=== PATIENT | female | born 1980 | race Caucasian/White ===

== ENCOUNTER 2016-10-25 11:28 | Emergency (ER) | payer MEDICAID ==
[2016-10-25] MEDS ORDERED: Ibuprofen TAB* 400 MG PO ONE (13:29)
--- NOTE | 2016-10-25 13:29 | UC ---
Lower Extremity/Ankle HPI - HPI Summary HPI Summary: complaint of lower bilateral leg pain that started approx 4 days ago- left much worse than the right leg pain has worsened pain started in both foot and shoots into her saenz walking on it makes the pain worse denies trauma but has been walking approx 6-10 miles per day wears sneakers hasn't taken any medication for pain - History of Current Complaint Chief Complaint: UCLowerExtremity Stated Complaint: LEG INJURY Time Seen by Provider: 10/25/16 12:21 Hx Obtained From: Patient Hx Last Menstrual Period: TUBAL Aggravating Factor(s): Ambulation Alleviating Factor(s): Rest Able to Bear Weight: Yes - Allergies/Home Medications Allergies/Adverse Reactions: Allergies Allergy/AdvReac Type Severity Reaction Status Date / Time No Known Allergies Allergy Verified 02/15/16 18:41 PMH/Surg Hx/FS Hx/Imm Hx Previously Healthy: Yes Endocrine History Of: Denies: Diabetes, Thyroid Disease Cardiovascular History Of: Denies: Cardiac Disorders, Hypertension, Pacemaker/ICD Respiratory History Of: Denies: COPD, Asthma GI/ History Of: Reports: Gall Bladder Disease - Choly Denies: Ulcer, Renal Disease Psychological History Of: Reports: Anxiety, Depression, Bipolar Disorder Denies: Schizophrenia - Surgical History Surgical History: Yes Surgery Procedure, Year, and Place: C-Sections, 2002 2006 2009, [facility]. Cholecystectomy, 2011, [facility], thigh debriefing infection. tubal ligation - Family History Known Family History: Positive: None Family History: no known family history of cardio pulmonary disease or clotting disorders - Social History Occupation: Unemployed Lives: With Family Alcohol Use: None Substance Use Type: None Substance Use Comment - Amount & Last Used: amphetamines - none for 6 months or more 08/31 Smoking Status (MU): Current Every Day Smoker Type: Cigarettes Amount Used/How Often: 5 PER DAY Have You Smoked in the Last Year: Yes Household Exposure Type: Cigarettes Cessation Counseling: Patient Advised to Stop - Immunization History Most Recent Influenza Vaccination: Never Most Recent Tetanus Shot: 4yrs ago Most Recent Pneumonia Vaccination: never Review of Systems Constitutional: Negative Skin: Negative Eyes: Negative ENT: Negative Respiratory: Negative Cardiovascular: Negative Gastrointestinal: Negative Genitourinary: Negative Motor: Negative Neurovascular: Negative Musculoskeletal: Other: - lower leg pain Neurological: Negative Psychological: Negative All Other Systems Reviewed And Are Negative: Yes Physical Exam Triage Information Reviewed: Yes Appearance: No Pain Distress, Well-Nourished, Obese Vital Signs: Initial Vital Signs Temp 97.4 F 10/25/16 11:51 Pulse 90 10/25/16 11:51 Resp 16 10/25/16 11:51 BP 128/70 10/25/16 11:51 Pulse Ox 98 10/25/16 11:51 Vital Signs Reviewed: Yes Eyes: Positive: Conjunctiva Clear ENT: Positive: Pharynx normal, TMs normal. Negative: Nasal congestion Neck: Positive: No Lymphadenopathy Respiratory: Positive: Lungs clear, Normal breath sounds, No respiratory distress Cardiovascular: Positive: RRR, No Murmur, Pulses Normal Abdomen Description: Positive: Nontender, Soft Bowel Sounds: Positive: Present Musculoskeletal: Positive: Other: - medial and lateral tibia tenderness bilaterally, non tender in calves and knee- no edema No bony deformities, inflammation, or tenderness in bony prominences or soft tissue of foot or ankle. Full ROM dorsi/plantar flexion, inversion & eversion. [place] test negative. Neurological Exam: Normal Psychological Exam: Normal Skin Exam: Normal Lower Extremity Course/Dx - Differential Dx/Diagnosis Differential Diagnosis/HQI/PQRI: DVT, Fracture (Closed), Sprain, Strain Provider Diagnoses: saenz splints bilaterally Discharge - Discharge Plan Condition: Stable Disposition: HOME Patient Education Materials: Saenz Splints (ED), RICE Therapy (ED) Forms: *Work Release Referrals: Brennon Barrientos MD [Primary Care Provider] - Additional Instructions: Your blood pressure is elevated. Please contact your primary care provider within 1 day -4 weeks for further evaluation. Increase fluids and rest Take ibuprofen for fever or pain Please review your discharge instructions. If your symptoms do not improve please call your primary care provider or return to urgent care
[2016-10-25 13:36] VITALS: BP 137/90
== END 2016-10-25 13:43 | disposition home or self-care (01) ==
LOC: UCEAST 11:28
DX: S86.892A Other injury of other muscle(s) and tendon(s) at lower leg level, left leg, initial encounter (principal); S86.891A Other injury of other muscle(s) and tendon(s) at lower leg level, right leg, initial encounter; X58.XXXA Exposure to other specified factors, initial encounter; Y93.01 Activity, walking, marching and hiking; Y92.9 Unspecified place or not applicable; E66.9 Obesity, unspecified; Z90.49 Acquired absence of other specified parts of digestive tract; F17.210 Nicotine dependence, cigarettes, uncomplicated
CPT/HCPCS: 99212; A9270-GY; G0463

== ENCOUNTER 2016-12-22 16:02 | Emergency (ER) | payer SELFPAY ==
[2016-12-22 16:16] VITALS: BP 105/57
[2016-12-22] MEDS ORDERED: predniSONE TAB* 20 MG PO ONE (17:21)
[2016-12-22] MEDS ORDERED: Albuterol HFA INHALER* 8 gm MDI INH ONE (17:21)
--- NOTE | 2016-12-22 17:29 | UC ---
Respiratory Complaint HPI - HPI Summary HPI Summary: 36 yo female with cough and wheezing x 4 days worse when going into walk in freezer cough productive at times no f/c no cp or sob has used inhaler in past for bronchitis - History of Current Complaint Chief Complaint: UCRespiratory Stated Complaint: COUGH,COLD,BACK PAIN,SKIN COMPLAINTS Time Seen by Provider: 12/22/16 17:15 Hx Obtained From: Patient Hx Last Menstrual Period: TUBAL Onset/Duration: Gradual Onset, Lasting Days Severity Initially: Mild Severity Currently: Moderate Pain Intensity: 2 Pain Scale Used: 0-10 Numeric Character: Cough: Productive Aggravating Factors: Exertion, Deep Breaths Alleviating Factors: Spontaneous Resolution Associated Signs And Symptoms: Positive: Wheezing Related History: Similar Episode/Dx as: - brocnhitis - Allergies/Home Medications Allergies/Adverse Reactions: Allergies Allergy/AdvReac Type Severity Reaction Status Date / Time No Known Allergies Allergy Verified 12/22/16 16:16 PMH/Surg Hx/FS Hx/Imm Hx Previously Healthy: Yes - Surgical History Surgical History: Yes Surgery Procedure, Year, and Place: C-Sections, 2001 2005 2009, [facility]. Cholecystectomy, 2011, [facility], thigh debriefing infection. tubal ligation - Family History Known Family History: Negative: Cardiac Disease, Hypertension, Diabetes Family History: no known family history of cardio pulmonary disease or clotting disorders - Social History Alcohol Use: None Substance Use Type: None Substance Use Comment - Amount & Last Used: amphetamines - none for 6 months or more 08/31 Smoking Status (MU): Current Every Day Smoker Type: Cigarettes Amount Used/How Often: 5 PER DAY Have You Smoked in the Last Year: Yes Household Exposure Type: Cigarettes - Immunization History Most Recent Influenza Vaccination: Never Most Recent Tetanus Shot: 4yrs ago Most Recent Pneumonia Vaccination: never Review of Systems Constitutional: Negative Skin: Negative Eyes: Other - left upper lid pain swelling ENT: Negative Respiratory: Cough, Other - wheezing Cardiovascular: Negative Gastrointestinal: Negative Genitourinary: Negative Motor: Negative Neurovascular: Negative Musculoskeletal: Negative Neurological: Negative Psychological: Negative All Other Systems Reviewed And Are Negative: Yes Physical Exam Triage Information Reviewed: Yes Appearance: Well-Appearing, No Pain Distress, Well-Nourished Vital Signs: Initial Vital Signs Temp 98.6 F 12/22/16 16:16 Pulse 80 12/22/16 16:16 Resp 18 12/22/16 16:16 BP 105/57 12/22/16 16:16 Pulse Ox 98 12/22/16 16:16 Vital Signs Reviewed: Yes Eyes: Positive: Conjunctiva Clear, Other: - left upper eyelid syte ENT: Positive: Hearing grossly normal, Pharynx normal. Negative: Nasal congestion, Nasal drainage Neck: Positive: Supple, Nontender, No Lymphadenopathy Respiratory: Positive: No respiratory distress, No accessory muscle use, Wheezing Cardiovascular: Positive: RRR, No Murmur Musculoskeletal: Positive: Strength Intact, ROM Intact Neurological Exam: Normal Neurological: Positive: Alert Psychological Exam: Normal UC Diagnostic Evaluation - Laboratory O2 Sat by Pulse Oximetry: 98 - normal/not hypoxic Respiratory Course/Dx - Differential Dx/Diagnosis Provider Diagnoses: acute bronchitis with bronchospasm. stye left upper eyelid Discharge - Discharge Plan Condition: Improved Disposition: HOME Prescriptions: Erythromycin OPHTH.OINT* [Ilotycin OPHTH.OINT*] 1 applic LEFT EYE QID #1 ophth.oint Patient Education Materials: Stye (ED), Acute Bronchitis (ED), Bronchospasm (ED ) Forms: *Work Release Referrals: Brennon Barrientos MD [Primary Care Provider] - 5 Days (if not better) Additional Instructions: recheck for new or worsening symptoms
== END 2016-12-22 17:43 | disposition home or self-care (01) ==
LOC: UCEAST 16:02
DX: J20.9 Acute bronchitis, unspecified (principal); F17.210 Nicotine dependence, cigarettes, uncomplicated
CPT/HCPCS: 99213; A9270-GY; G0463; J7512

== ENCOUNTER 2017-03-23 11:40 | Emergency (ER) | payer SELFPAY ==
[2017-03-23 12:26] VITALS: BP 112/73
--- NOTE | 2017-03-23 13:06 | UC ---
Juan C Arrieta Angela, [facility] on 03/23/17 at 1226 . General HPI - HPI Summary HPI Summary: In Room Note: This pt is a 37 y/o female presenting to [facility] c/o worsening sore throat since yesterday. Pt reports it is painful to swallow and feels the back of her throat is swollen. Pt also c/o cough, sinus pain, chest pain, chills, and fatigue. She denies abd pain, nausea, vomiting, fever, urinary symptoms. Pt notes she just got over bronchitis 1-2 months ago. She has an spacer at home. Pt has a PMHx: cholecystectomy. She denies any other PMHx. Pt is an every day smoker. - History of Current Complaint Stated Complaint: COUGH SORE THROAT BODYACHES Time Seen by Provider: 03/23/17 12:08 Hx Obtained From: Patient Hx Last Menstrual Period: TUBAL Onset/Duration: Lasting Hours Associated Signs & Symptoms: Positive: Other - sore throat, fatigue, myalgia.. Negative: Abdominal Pain, Diarrhea, Fever, Nausea, SOB, Vomiting - Allergy/Home Medications Allergies/Adverse Reactions: Allergies Allergy/AdvReac Type Severity Reaction Status Date / Time No Known Allergies Allergy Verified 03/23/17 12:20 Home Medications: Home Medications buPROPion TAB* [Wellbutrin TAB*] 300 mg PO DAILY 03/23/17 [History Confirmed 01/30] PMH/Surg Hx/FS Hx/Imm Hx Other Endocrine History: DENIES: Diabetes Other Cardiovascular History: DENIES: HTN - Surgical History Surgical History: Yes Surgery Procedure, Year, and Place: C-Sections, 2001 2005 2009, [facility]. Cholecystectomy, 2011, [facility], thigh debriefing infection. tubal ligation - Family History Known Family History: Negative: Cardiac Disease, Hypertension, Diabetes, Respiratory Disease Family History: no known family history of cardio pulmonary disease or clotting disorders - Social History Occupation: Employed Full-time - [employer] Alcohol Use: None Substance Use Type: None Substance Use Comment - Amount & Last Used: amphetamines - none for 6 months or more 08/31 Smoking Status (MU): Current Every Day Smoker Type: Cigarettes Amount Used/How Often: 5 PER DAY Have You Smoked in the Last Year: Yes Household Exposure Type: Cigarettes - Immunization History Most Recent Influenza Vaccination: Never Most Recent Tetanus Shot: 4yrs ago Most Recent Pneumonia Vaccination: never Review of Systems Constitutional: Chills, Fatigue Skin: Negative Eyes: Other - eye discomfort ENT: Sore Throat, Sinus Pain/Tenderness Respiratory: Cough Cardiovascular: Chest Pain Gastrointestinal: Negative Genitourinary: Negative Motor: Negative Neurovascular: Negative Musculoskeletal: Negative Neurological: Negative All Other Systems Reviewed And Are Negative: Yes Physical Exam Triage Information Reviewed: Yes Vital Signs: Initial Vitals Temp Pulse Resp BP Pulse Ox 98.1 F 87 20 112/73 98 03/23/17 12:00 03/23/17 12:00 03/23/17 12:00 03/23/17 12:00 03/23/17 12:00 Vital Signs Reviewed: Yes - Additional Comments The patient is well-nourished in no acute distress and in no acute pain. The skin is warm and dry and skin color reflects adequate perfusion. HEENT: The head is normocephalic and atraumatic. The pupils are equal and reactive. The conjunctivae are clear and without drainage. Nares are patent and without drainage. The external ears are intact. The ear canals are patent and without drainage. The tympanic membranes are intact. THERE IS PAIN OVER THE LEFT MAXILLARY SINUS. THERE IS PSORIASIS ON THE LEFT EAR. THROAT IS ERYTHEMATOUS WITH POSTERIOR LYMPH PATCHES. Neck is supple with full range of motion and non-tender. THERE IS MILD ANTERIOR ADENOPATHY. Respiratory: Chest is non-tender. Lungs are clear to auscultation and breath sounds are symmetrical and equal. Cardiovascular: Hear is regular rate and rhythm. There is no murmur or rub auscultated. There is no peripheral edema and pulses are symmetrical and equal. Abdomen: The abdomen is soft and non-tender. There are normal bowel sounds heard in all four quadrants and there is no organomegaly palpated. Musculoskeletal: There is no back pain noted. Extremities are non-tender with full range of motion. There is good capillary refill. There is no peripheral edema or calf tenderness elicited. Neurological: Patient is alert and oriented to person, place and time. The patient has symmetrical motor strength in all four extremities. Psychiatric: The patient has an appropriate affect and does not exhibit any anxiety or depression. Re-Evaluation - Re-Evaluation First Eval Re-Evaluation Time: 12:57 Comment: I re-examined the pt. Her lungs are clear with no wheezes. Course/Dx - Course Course Of Treatment: Medications have been included in the original chart and reviewed. Normal BP reading and no follow-up instructions required. On exam, THERE IS PAIN OVER THE LEFT MAXILLARY SINUS. THERE IS PSORIASIS ON THE LEFT EAR. THROAT IS ERYTHEMATOUS WITH POSTERIOR LYMPH PATCHES. THERE IS MILD ANTERIOR ADENOPATHY. The rapid strep test is negative for strep throat. Influenza A and B are negative. MDM: 37 y/o with 1 day history of fatigue, aches, possible temperature, sore throat. I discussed with the pt her smoking history and her experience with bronchospasms. Although I didnt hear any wheezes during my examination, she subjectively feels better with an inhaler. She notes she has a spacer at home. I will prescribe her with an inhaler and Z- pack. - Differential Dx - Multi-Symptom Provider Diagnoses: Acute bronchitis Discharge - Discharge Plan Condition: Stable Disposition: HOME Prescriptions: Albuterol HFA INHALER* [Ventolin HFA Inhaler*] 1 - 2 puff INH Q4H PRN #1 mdi MDD 8 inhalations PRN Reason: Shortness Of Breath Azithromycin TAB* [Zithromax TAB*] 250 mg PO DAILY #6 tab Patient Education Materials: Acute Bronchitis (ED), Bronchospasm (ED) Forms: *Work Release Referrals: Brennon Barrientos MD [Primary Care Provider] - Additional Instructions: WE DISCUSSED: 1. You have bronchitis. I have given you a zpak and an inhaler. 2. Rest today. Lots of tea and honey for your sore throat. 3. See instructions below. 4. COUGH, CONGESTION of CHEST, SINUSES OR EARS: The most important goal is to liquefy all the phlegm and get it out of your head and chest. Any illness causing cough, congestion, sore throat or sinus discomfort can be helped by doing the following: STAND UNDER SHOWER STREAM TO LOOSEN SECRETIONS. STAY AWAY FROM ANY SMOKE OR IRRITANTS. WHAT ELSE CAN HELP RELIEVE YOUR SYMPTOMS: GENERAL TYPES OF MEDICINE THAT MAY HELP DECONGESTANTS: helps relieve stuffiness and clears sinuses. Pseudoephedrine ( Sudafed or generic) is effective but you need to ask the pharmacist for it because it may be kept behind the counter. ANTIHISTAMINES: are NOT helpful in many colds and flus because they can worsen sore throat, dry eyes and mouth and cause drowsiness. Examples are diphenhydramine, doxylamine and chlorpheniramine. They can help dry you out if you are having profuse, clear drainage from the nose. EXPECTORANTS: helps thin mucous in the nose and chest, making it easier to clear the fluid out. Expectorants are in most combination cough/cold remedies and should be taken with plenty of water. Guaifenesin is the most common expectorant and it comes in pill or liquid form. Mucinex is an extended release form of guaifenesin. COUGH SUPPRESANT: reduces the body's cough reflex. Dextromethorphan is in over the counter products, but sometimes narcotics such as codeine or hydrocodone are used to suppress cough. SPECIFIC MEDICATIONS: The most important goal is to liquefy all the phlegm and get it out of your head and chest: The following medicines (in prescription form or you can buy them without prescription) may help: To help with cough: DEXTROMETHORPHAN (Vicks, Robitussin, Nyquil and other brands) To help break up phlegm: GUAIFENESIN (Mucinex, Robitussin, other brands) To help clear congestion: PSEUDOEPHEDRINE (Sudafed, Dimetapp, other brands) TRY TO CLEAR NOSE: AFRIN NASAL SPRAY: 2-3 SPRAYS PER NOSTRIL, TWICE A DAY FOR TWO DAYS ONLY. USEFUL WAYS TO FEEL BETTER WITHOUT MEDICATIONS: STAND UNDER SHOWER STREAM TO LOOSEN SECRETIONS. USE A VAPORIZOR. STAY AWAY FROM ANY SMOKE OR IRRITANTS. USE SALINE NASAL SPRAY TO KEEP FLOW OF MUCOUS FROM NOSTRILS AND SINUSES. CONSIDER USING NETI POT TO HELP WITH ALLERGIES AND CONGESTION IN THE NOSE. USE THIS THREE TIMES A WEEK. YOU CAN GET THIS AT [employer] IN [place] OR VARIOUS DRUGSTORES. DRINK LOTS OF WARM FLUIDS USEFUL HOME REMEDIES: WARM WATER GARGLES, WITH TSP OF SALT PER 8 OUNCES OF WATER, GARGLE FOR A FEW SECONDS AND SPIT OUT; GARGLE AND SPIT OUT; EVERY THREE HOURS. AND/OR: WARM WATER OR TEA, HONEY AND LEMON; 2-3 CUPS A DAY. FOR SORE THROAT: KEEP THROAT MOIST WITH LOZENGES; TEA AND HONEY. USE WARM WATER GARGLES 3-4 TIMES A DAY. FOLLOW UP: RE-CHECK IN 1O DAYS, NEEDED, IF YOU ARE NOT IMPROVING. RETURN HERE OR SEE YOUR PHYSICIAN. RE-CHECK SOONER IF INCREASED PAIN OR TEMPERATURE. The documentation as recorded by the Juan C crystal Angela accurately reflects the service I personally performed and the decisions made by me, Mickey Haas MD.
== END 2017-03-23 13:25 | disposition home or self-care (01) ==
LOC: UCEAST 11:40
DX: J20.9 Acute bronchitis, unspecified (principal); F17.210 Nicotine dependence, cigarettes, uncomplicated
CPT/HCPCS: 87502; 87651; 99212; G0463

== ENCOUNTER 2017-10-20 11:15 | Emergency (ER) | payer OTHER ==
--- NOTE | 2017-10-20 11:36 | UC ---
Skin Complaint HPI - HPI Summary HPI Summary: Pt presents with burn to right hand. She tells me that 2 days ago she was heating honey for tea and spilled the honey onto her right hand. She bandaged the area and applied neosporin. She developed a blister that popped this morning and she noticed some yellow mildly thick fluid. Pain is well controlled currently - has some tingling in her thumb and index finger. - History of Current Complaint Hx Obtained From: Patient Hx Last Menstrual Period: TUBAL Onset/Duration: Sudden Onset Onset Severity: Severe Current Severity: Moderate Pain Intensity: 5 Pain Scale Used: 0-10 Numeric <Rodriguez Hernandez - Last Filed: 10/20/17 14:03> <Shaye Leary - Last Filed: 10/21/17 20:21> - History of Current Complaint Time Seen by Provider: 10/20/17 11:35 Stated Complaint: RIGHT HAND BURN 2 DAYS AGO - Allergy/Home Medications Allergies/Adverse Reactions: Allergies Allergy/AdvReac Type Severity Reaction Status Date / Time No Known Allergies Allergy Verified 10/20/17 11:44 Home Medications: Home Medications Methylphenidate TAB* [Ritalin TAB*] 10 mg PO BID 10/20/17 [History Confirmed 01/01] Review of Systems Constitutional: Negative Skin: Other - Burn to right hand Respiratory: Negative Cardiovascular: Negative Neurovascular: Negative Musculoskeletal: Negative Neurological: Negative Psychological: Negative All Other Systems Reviewed And Are Negative: Yes <Rodriguez Hernandez - Last Filed: 10/20/17 14:03> PMH/Surg Hx/FS Hx/Imm Hx - Additional Past Medical History Additional PMH: ADHD Previously Healthy: Yes - Surgical History Surgical History: Yes Surgery Procedure, Year, and Place: C-Sections, 2002 2006 2009, [facility]. Cholecystectomy, 2011, [facility], thigh debriefing infection. tubal ligation - Family History Known Family History: Positive: None Negative: Cardiac Disease, Hypertension, Diabetes, Respiratory Disease Family History: no known family history of cardio pulmonary disease or clotting disorders - Social History Lives: With Family Alcohol Use: None Substance Use Type: None Substance Use Comment - Amount & Last Used: amphetamines - none for 6 months or more 08/31 Smoking Status (MU): Current Every Day Smoker Type: Cigarettes Amount Used/How Often: 5 PER DAY Have You Smoked in the Last Year: Yes Household Exposure Type: Cigarettes - Immunization History Most Recent Influenza Vaccination: Never Most Recent Tetanus Shot: 4yrs ago Most Recent Pneumonia Vaccination: never <Rodriguez Hernandez - Last Filed: 10/20/17 14:03> Physical Exam - Summary Physical Exam Summary: GENERAL: NAD. WDWN. No pain distress. SKIN: Second degree burn extending from right hand first MCP to third MC. Popped blister is overlying the skin. Scant yellow drainage around the area. Surrounding moderate erythema. No streaking. NECK: Supple. Nontender. No lymphadenopathy. CHEST: CTAB. No r/r/w. No accessory muscle use. Breathing comfortably and in no distress. CV: RRR. Without m/r/g. Pulses intact. Brisk cap refill. MSK: Right hand and all fingers FROM. Sensations intact. NEURO: Alert. CN II-XII grossly intact. PSYCH: Age appropriate behavior. Triage Information Reviewed: Yes <Rodriguez Hernandez - Last Filed: 10/20/17 14:03> Vital Signs: Initial Vital Signs Temp 98.5 F 10/20/17 11:36 Pulse 75 10/20/17 11:36 Resp 16 10/20/17 11:36 BP 109/56 10/20/17 11:36 Pulse Ox 99 10/20/17 11:36 <Shaye Leary - Last Filed: 10/21/17 20:21> Course/Dx - Course Course Of Treatment: Last tetanus she thinks was in the last year when she had a tattoo infection. Wound was dressed with telfa. Keflex for potential infectious process. - Diagnoses Provider Diagnoses: Second degree burn to right hand <Rodriguez Hernandez - Last Filed: 10/20/17 14:03> Discharge - Sign-Out/Discharge Documenting (check all that apply): Discharge - Billing Disposition and Condition Condition: STABLE Disposition: HOME <Rodriguez Hernandez - Last Filed: 10/20/17 14:03> - Sign-Out/Discharge Documenting (check all that apply): Discharge - Billing Disposition and Condition Condition: STABLE Disposition: HOME <Shaye Leary - Last Filed: 10/21/17 20:21> - Discharge Plan Condition: Stable Disposition: HOME Prescriptions: Cephalexin CAP* [Keflex CAP*] 500 mg PO BID #14 cap Patient Education Materials: Second Degree Burn (ED) Referrals: Sharifa Burrows MD [Primary Care Provider] - Additional Instructions: If you develop a fever, shortness of breath, chest pain, new or worsening symptoms - please call your PCP or go to the ED. 1) Please keep your dressing clean dry and intact - change daily 2) Apply ice to your hand to help with pain and swelling Attestation Statement User Type: Provider - I was available for consult. This patient was seen by the KEEGAN. The patient was not presented to, seen by, or examined by me. -Tylor <Shaye Leary - Last Filed: 10/21/17 20:21>
[2017-10-20 11:47] VITALS: BP 109/56
== END 2017-10-20 11:59 | disposition home or self-care (01) ==
LOC: UCCORT 11:15
DX: T23.201A Burn of second degree of right hand, unspecified site, initial encounter (principal); T31.0 Burns involving less than 10% of body surface; X12.XXXA Contact with other hot fluids, initial encounter; Y93.89 Activity, other specified; Y92.9 Unspecified place or not applicable; F90.9 Attention-deficit hyperactivity disorder, unspecified type; F17.210 Nicotine dependence, cigarettes, uncomplicated
CPT/HCPCS: 16025; 99212; G0463

== ENCOUNTER 2017-10-25 13:34 | Emergency (ER) | payer OTHER ==
[2017-10-25 14:13] VITALS: BP 119/66
--- NOTE | 2017-10-25 14:17 | UC ---
Abdominal Pain Female HPI - HPI Summary HPI Summary: 37 y/o WF presents with RUQ pain that began 3 days ago. She tells me that she accidentally swallowed her tongue ring (ball and bar) 3 days ago and since that time has had RUQ sharp pain. Also has been constipated with small hard ball- like bowel movements once a day, which is very abnormal for her as she is regular. She is also mildly nauseous, but is still eating and drinking as usual. Denies fever, chills, SOB, chest pain, vomiting, or recent illness. - History of Current Complaint Chief Complaint: UCAbdominalPain Stated Complaint: ABDOMINAL PAIN, AND NAUSEA Time Seen by Provider: 10/25/17 14:16 Hx Obtained From: Patient Hx Last Menstrual Period: 10/14/17 Severity Initially: Moderate Severity Currently: Moderate Pain Intensity: 7 Pain Scale Used: 0-10 Numeric Character: Sharp Aggravating Factor(s): Food, Movement Alleviating Factor(s): Position Allergies/Adverse Reactions: Allergies Allergy/AdvReac Type Severity Reaction Status Date / Time No Known Allergies Allergy Verified 10/25/17 14:03 PMH/Surg Hx/FS Hx/Imm Hx - Additional Past Medical History Additional PMH: ADHD Previously Healthy: Yes - Surgical History Surgical History: Yes Surgery Procedure, Year, and Place: C-Sections, 2002 2006 2009, [facility]. Cholecystectomy, 2011, [facility], thigh debridement - infection. tubal ligation - Family History Known Family History: Positive: None Negative: Cardiac Disease, Hypertension, Diabetes, Respiratory Disease Family History: no known family history of cardio pulmonary disease or clotting disorders - Social History Alcohol Use: None Substance Use Type: None Substance Use Comment - Amount & Last Used: amphetamines - none for 6 months or more 08/31 Smoking Status (MU): Current Every Day Smoker Type: Cigarettes Amount Used/How Often: 4-5 cig/ PER DAY Have You Smoked in the Last Year: Yes Household Exposure Type: Cigarettes - Immunization History Most Recent Influenza Vaccination: Never Most Recent Tetanus Shot: 4yrs ago Most Recent Pneumonia Vaccination: never Review of Systems Constitutional: Negative Skin: Negative Respiratory: Negative Cardiovascular: Negative Gastrointestinal: Abdominal Pain, Nausea Genitourinary: Negative Neurovascular: Negative Musculoskeletal: Negative Neurological: Negative Psychological: Negative All Other Systems Reviewed And Are Negative: Yes Physical Exam - Summary Physical Exam Summary: GENERAL: NAD. WDWN. No pain distress. SKIN: Burn to right hand improving. NECK: Supple. Nontender. No lymphadenopathy. CHEST: CTAB. No r/r/w. No accessory muscle use. Breathing comfortably and in no distress. CV: RRR. Without m/r/g. Pulses intact. Brisk cap refill. ABDOMEN: Moderate TTP RUQ. Soft. No distention or guarding. No organomegaly. No CVA tenderness. Bowel sounds present x4. NEURO: Alert. CN II-XII grossly intact. PSYCH: Age appropriate behavior. Triage Information Reviewed: Yes Vital Signs: Initial Vital Signs Temp 97.0 F 10/25/17 14:04 Pulse 73 10/25/17 14:04 Resp 16 10/25/17 14:04 BP 119/66 10/25/17 14:04 Pulse Ox 98 10/25/17 14:04 Abd Pain Female Course/Dx - Course Course Of Treatment: CT: IMPRESSION: NO ACUTE NONCONTRAST CT PATHOLOGY OF THE VISUALIZED ABDOMEN OR PELVIS. Advised her f/u with her PCP if pain continues - will rx for Zofran for her intermittent nausea. - Differential Dx/Diagnosis Provider Diagnoses: RUQ pain. Nausea Discharge - Sign-Out/Discharge Documenting (check all that apply): Discharge - Discharge Plan Condition: Stable Disposition: HOME Prescriptions: Ondansetron TAB* [Zofran 4 MG Tab*] 4 mg PO Q8H PRN #12 tab PRN Reason: Nausea Patient Education Materials: Abdominal Pain (ED) Referrals: Sharifa Burrows MD [Primary Care Provider] - Additional Instructions: If you develop a fever, shortness of breath, chest pain, new or worsening symptoms - please call your PCP or go to the ED. - Billing Disposition and Condition Condition: STABLE Disposition: HOME
--- NOTE | 2017-10-25 15:01 | RAD ---
CLINICAL HISTORY: Abdominal pain and nausea COMPARISON: November 07, 2013 TECHNIQUE: Multiple contiguous axial CT scans were obtained of the abdomen and pelvis, without intravenous contrast enhancement. Coronal and sagittal multiplanar reformations are submitted for review. Oral contrast was not administered. FINDINGS: LUNG BASES: The lung bases are clear. LIVER: The liver is normal in shape, size, contour, and attenuation. BILE DUCTS: There is no intrahepatic or extrahepatic biliary dilatation. GALLBLADDER: The gallbladder is not visualized. Surgical clips are noted in the gallbladder fossa. PANCREAS: The pancreas is normal, without mass or ductal dilatation. SPLEEN: Normal in size and appearance. UPPER GI TRACT: Evaluation of the gastrointestinal tract is limited by incomplete gastric distention. The upper GI tract is unremarkable. SMALL BOWEL AND MESENTERY: The small bowel is normal in contour, course, and caliber. There is no obstruction or dilatation. COLON: The colon is normal in contour, course, caliber. There is no pericolonic inflammatory change. ADRENALS: Normal bilaterally. KIDNEYS: The kidneys are normal in shape, size, contour, and axis. There is no hydronephrosis or nephrolithiasis. BLADDER: The bladder is collapsed and is not well evaluated. PELVIC ORGANS: Surgical clips are noted anterior to the uterus, presumably related to the history of tubal ligation. AORTA: The aorta is normal. IVC: Unremarkable LYMPH NODES: There is no lymphadenopathy by size criteria. ABDOMINAL WALL: There is no evidence for abdominal wall hernia. BONES AND SOFT TISSUES: Unremarkable OTHER: None IMPRESSION: NO ACUTE NONCONTRAST CT PATHOLOGY OF THE VISUALIZED ABDOMEN OR PELVIS.
== END 2017-10-25 15:17 | disposition home or self-care (01) ==
LOC: UCEAST 13:34
DX: R10.11 Right upper quadrant pain (principal); R11.0 Nausea; F90.9 Attention-deficit hyperactivity disorder, unspecified type; F17.210 Nicotine dependence, cigarettes, uncomplicated
CPT/HCPCS: 74176; 99212; G0463

== ENCOUNTER 2018-07-01 07:21 | Emergency (ER) | payer OTHER ==
[2018-07-01 07:44] VITALS: BP 111/69
--- NOTE | 2018-07-01 08:16 | UC ---
Back Pain HPI - HPI Summary HPI Summary: Pt presents with c/o bilateral upper arm weakness and numbness X 6 months. Pt also has c/o left lower back and buttock pain and numbness x 6 months. 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 denies injury present or past. - History of Current Complaint Chief Complaint: UCGeneralIllness Stated Complaint: BACK AND ARM PAIN Time Seen by Provider: 07/01/18 08:04 Hx Obtained From: Patient Hx Last Menstrual Period: 06/16 ?: No Onset/Duration: Gradual Onset, Lasting Weeks - 6 months Timing: Constant Severity Initially: Moderate Severity Currently: Severe Pain Intensity: 9 Back Pain: Is Diffuse Character: Dull, Aching, Burning Aggravating Factor(s): Movement, Lifting, Bending Alleviating Factor(s): Rest Associated Signs And Symptoms: Positive: Weakness, Numbness, Tingling - Risk Factors AAA Risk Factors: Negative TAD Risk Factors: Negative Cauda Equina Risk Factors: Negative Epidural Abscess Risk Factors: Negative - Allergies/Home Medications Allergies/Adverse Reactions: Allergies Allergy/AdvReac Type Severity Reaction Status Date / Time No Known Allergies Allergy Verified 10/25/17 14:03 PMH/Surg Hx/FS Hx/Imm Hx Previously Healthy: Yes - Surgical History Surgical History: Yes Surgery Procedure, Year, and Place: C-Sections, 2001 2006 2009, [facility]. Cholecystectomy, 2011, [facility], thigh debridement - infection. tubal ligation - Family History Known Family History: Positive: None Negative: Cardiac Disease, Hypertension, Diabetes, Respiratory Disease Family History: no known family history of cardio pulmonary disease or clotting disorders - Social History Occupation: Student Lives: With Family Alcohol Use: None Substance Use Type: None Substance Use Comment - Amount & Last Used: amphetamines - none for 6 months or more 08/31 Smoking Status (MU): Light Every Day Tobacco Smoker Type: Cigarettes Amount Used/How Often: 4-5 cig/ PER DAY Have You Smoked in the Last Year: Yes Household Exposure Type: Cigarettes - Immunization History Most Recent Influenza Vaccination: Never Most Recent Tetanus Shot: 4yrs ago Most Recent Pneumonia Vaccination: never Review of Systems All Other Systems Reviewed And Are Negative: Yes Constitutional: Positive: Negative Skin: Positive: Negative Eyes: Positive: Negative ENT: Positive: Negative Respiratory: Positive: Negative Cardiovascular: Positive: Negative Gastrointestinal: Positive: Negative Genitourinary: Positive: Negative Motor: Positive: Decreased ROM - right upper, Weakness - bilateral upper extremities with righ tworse than left. Neurovascular: Positive: Negative Musculoskeletal: Positive: Arthralgia - generalized,, Decreased ROM - upper extremities, Myalgia - generalized c/o point tendereness left side sciatica/ buttocks that radiates posterior left leg. Neurological: Positive: Negative Psychological: Positive: Negative Is Patient Immunocompromised?: No Physical Exam Triage Information Reviewed: No Appearance: Pain Distress Vital Signs: Initial Vital Signs Temp 97.3 F 07/01/18 07:37 Pulse 71 07/01/18 07:37 Resp 18 07/01/18 07:37 BP 111/69 07/01/18 07:37 Pulse Ox 100 07/01/18 07:37 Vital Signs Reviewed: No Eye Exam: Normal ENT Exam: Normal Dental Exam: Normal Neck exam: Normal Neck: Positive: Supple, Nontender Respiratory Exam: Normal Cardiovascular Exam: Normal Musculoskeletal Exam: Normal Musculoskeletal: Positive: Strength Limited @ - right upper extremity,, Other: - c/o point tenderness left sciatica Neurological Exam: Normal Neurological: Positive: Alert, Muscle Tone Normal, Fatigued Psychological Exam: Normal Skin Exam: Normal Back Pain Course/Dx - Course Course Of Treatment: I discusssed with the pt the need to follow up with a PCP for routine health and further evaluation and treatment of over 6 month complaint of upper extremity weakness and pt statesd that she just wants referal to back specialist - Differential Dx/Diagnosis Differential Diagnosis/HQI/PQRI: Herniated Disc, Strain, Sprain Provider Diagnosis: Upper extremity weakness, Sciatic leg pain Discharge - Sign-Out/Discharge Documenting (check all that apply): Patient Departure All imaging exams completed and their final reports reviewed: No Studies - Discharge Plan Condition: Stable Disposition: HOME Patient Education Materials: Sciatica (ED), Weakness (ED), Chronic Back Pain ( DC), Lower Back Exercises (ED) Referrals: [facility] [Outside] - As Soon As Possible Blaise Montoya MD [Medical Doctor] - As Soon As Possible Sharifa Burrows MD [Primary Care Provider] - - Billing Disposition and Condition Condition: STABLE Disposition: Home - Attestation Statements Provider Attestation: Per institutional requirements, I have reviewed the chart, however, I was not consulted specifically or made aware of this patient by the midlevel provider. I did not personally evaluate, interact with , or disposition this patient.
[2018-07-01] MEDS ORDERED: Ketorolac INJ* 30 MG/ML 1 ML VIAL IM ONE (08:18)
== END 2018-07-01 08:50 | disposition home or self-care (01) ==
LOC: UCCORT 07:21
DX: M62.81 Muscle weakness (generalized) (principal); M79.606 Pain in leg, unspecified; F17.210 Nicotine dependence, cigarettes, uncomplicated
CPT/HCPCS: 96372; 99211; G0463; J1885

== ENCOUNTER 2018-07-31 13:53 | Emergency (ER) | payer OTHER ==
--- OUTSIDE RECORDS SUMMARY | 2018-07-31 13:58 | XMS REPORT | Continuity of Care Document ---
:1980 External Reference #:[id number] Author Name Adelaide Ramires Care Team Providers Name Role Phone Sharifa Burrows MD Primary Care Physician Unavailable Payers Type Date Identification Numbers Payment Provider Subscriber Effective: Policy Number: [id number] Marin Carrillo 2017 Group Number: [id number] [address] PayID: [id number] [place] [address] Advance Directives Description No Information Available Problems Date Description Provider Status Onset: 06/21/2017 Adult attention deficit hyperactivity Sharifa Burrows M.D. Active disorder Onset: 06/21/2017 Psoriasis Sharifa Burrows M.D. Active Onset: 06/21/2017 Opioid dependence in remission Sharifa Burrows M.D. Active Onset: 06/17/2015 Skin sensation disturbance Reebcca Mccall MD Inactive Inactive: 06/21/2017 Onset: 10/02/2014 Syncope Sagar Chavarria M.D. Resolved Resolved: 06/21/2017 Family History Date Family Member(s) Problem(s) Comments Father Alcoholism First Daughter 15 First Daughter Psoriasis with arthropathy Second Daughter 12 Third Daughter 7 Fourth Daughter 4 Social History Type Date Description Comments Sex Unknown Lives With Mother Occupation Student ETOH Use Denies alcohol use Tobacco Use Start: Unknown Patient is a current smoker, smokes every day Recreational Drug Use Former Drug User opioids meth , IV drugs at some point contacted Hep C which cleared Tobacco Use Start: Unknown Light tobacco smoker (10 or fewer cigarettes/day) Smoking Status Reviewed: 07/23/18 Light tobacco smoker (10 or fewer cigarettes/day) Exercise Type/Frequency Exercises regularly Allergies, Adverse Reactions, Alerts Description No Known Drug Allergies Medications Medication Date Status Form Strength Qnty SIG Indications Ordering Provider Bupropion HCL ER 07/23/ Active Tablets ER 150mg 60tabs 1 tab F32.9 Sharifa (XL) 2018 24HR every 12 Stormy, hours M.DBraden Nicotine 07/23/ Active Gum 2mg 100uni as needed F17.210 Sharifa 2019 ts Gilmar Burrows Mometasone 06/21/ Active Cream 0.1% 45gm apply to L40.8 Sharifa Furoate 2016 affected Stormy, areas M.DBraden twice a day 10 days only Methylphenidate / Active Tablets 10mg 90tabs one to Sharifa HCL 0000 one and a Burrows, half M.D. twice a day No Active Unknown Medications 2014 - 2014 Gabapentin /00/ Hx Capsules 300mg 90caps 1 by Unknown 0000 - mouth 3 09/14/ times a 2014 day Suboxone / Hx Film 8-2mg /2 film Unknown 0000 - every 08/21/ morning, 20142 film in pm Bupropion HCL ER 00/00/ Hx Tablets ER 300mg qd Unknown (XL) 0000 - 24HR 2016 Trazodone HCL 00/00/ Hx Tablets 50mg 1 tablet Unknown 0000 - at 05/26/ bedtime [address] [facility] / Hx 1 tab po Unknown 0000 - daily 2014 Gabapentin /00/ Hx Capsules 400mg 1 by Unknown 0000 - mouth 07/17/ twice 2016 every day Zoloft /00/ Hx Tablets 50mg not Unknown 0000 - taking 2015 Trazodone HCL 00/00/ Hx Tablets 100mg 1 by Unknown 0000 - mouth 2016 night at bedtime as needed Wellbutrin XL /00/ Hx Tablets ER 425mg 1 by Unknown 0000 - 24HR mouth 06/21/ every day 2016 Bupropion HCL ER 00/00/ Hx Tablets ER 150mg once a Zaki (XL) 0000 - 24HR day with Priti ismael Salmeron NP 2016 dose to equal 450 Bupropion HCL ER 00/00/ Hx Tablets ER 300mg 30tabs once a Sharifa (XL) 0000 - 24HR day Stormy 07/23/ M.DBraden 2019 Immunizations CPT Code Status Date Vaccine Lot # [id number] Given 07/23/2018 Influenza Virus Vaccine, Quadrivalent, Split, [id number] Preservative Free Vital Signs Date Vital Result Comment 07/23/2018 9:54am Height 66 inches 5'6" Weight 205.00 lb Heart Rate 87 /min BP Systolic Sitting 120 mmHg BP Diastolic Sitting 80 mmHg O2 % BldC Oximetry 98 % BMI (Body Mass Index) 33.1 kg/m2 06/21/2017 8:49am Weight 213.00 lb Heart Rate 89 /min BP Systolic Sitting 132 mmHg BP Diastolic Sitting 96 mmHg Body Temperature 99.1 F O2 % BldC Oximetry 96 % 03/02/2016 4:08pm Weight 214.00 lb with shoes Heart Rate 96 /min BP Systolic Sitting 102 mmHg BP Diastolic Sitting 76 mmHg Body Temperature 98.0 F O2 % BldC Oximetry 97 % 10/07/2015 12:49pm Heart Rate 78 /min BP Systolic Sitting 108 mmHg BP Diastolic Sitting 70 mmHg Body Temperature 98.2 F O2 % BldC Oximetry 98 % 06/17/2015 1:03pm Height 66 inches 5'6" Weight 210.00 lb Heart Rate 80 /min BP Systolic Sitting 108 mmHg BP Diastolic Sitting 64 mmHg Respiratory Rate 16 /min BMI (Body Mass Index) 33.9 kg/m2 05/26/2015 4:30pm Weight 202.00 lb Heart Rate 84 /min BP Systolic Sitting 121 mmHg BP Diastolic Sitting 77 mmHg Body Temperature 98.2 F 10/02/2014 8:55am Height 66 inches 5'6" Weight 180.00 lb Heart Rate 64 /min BP Systolic Sitting 96 mmHg BP Diastolic Sitting 64 mmHg Respiratory Rate 12 /min BMI (Body Mass Index) 29.0 kg/m2 08/21/2014 3:37pm Height 66 inches 5'6" Weight 185.00 lb Heart Rate 83 /min BP Systolic Sitting 120 mmHg BP Diastolic Sitting 82 mmHg O2 % BldC Oximetry 98 % BMI (Body Mass Index) 29.9 kg/m2 12/25/2013 10:15am Height 66 inches 5'6" Weight 177.75 lb Heart Rate 64 /min BP Systolic Sitting 120 mmHg BP Diastolic Sitting 88 mmHg Body Temperature 97.9 F BMI (Body Mass Index) 28.7 kg/m2 Results Test Date Facility Test Result H/L Range Note Laboratory test [facility] Hepatitis C Undetected Undetected 1 finding [address] Rna Quant IU/[place] [address] [phone] Comp Metabolic [facility] Sodium 137 mmol/L N 133- 145 Panel [address] [place] [address] [phone] Potassium 4.6 mmol/L N 3.5-5.0 Chloride 107 mmol/L N 101-111 Co2 Carbon Dioxide 25 mmol/L N 22-32 Anion Gap 5 mmol/L N 2-11 Glucose 85 mg/dL N 70-100 Blood Urea Nitrogen 15 mg/dL N 6-24 Creatinine 0.80 mg/dL N 0.51-0.95 BUN/Creatinine Ratio 18.8 N 8-20 Calcium 9.2 mg/dL N 8.6-10.3 Total Protein 6.4 g/dL N 6.4-8.9 Albumin 3.9 g/dL N 3.2-5.2 Globulin 2.5 g/dL N 2-4 Albumin/Globulin Ratio 1.6 N 1-3 Total Bilirubin 0.30 mg/dL N 0.2-1.0 Alkaline Phosphatase 49 U/L N 34-104 Alt 11 U/L N 7-52 Ast 11 U/L Low 13-39 Egfr Non- 80.7 >60 Egfr 103.8 >60 2 Laboratory test 08/28/2017 [facility] TSH (Thyroid 1.21 mcIU/mL N 0.34-5.60 [address] Stim Horm) [place] [address] [phone] CBC Auto Diff 08/28/2017 [facility] White Blood 5.3 10^3/uL N 3.5-10.[address] [place] [address] [phone] Red Blood Count 4.91 10^6/uL N 4.0-5.4 Hemoglobin 14.1 g/dL N 12.0-16.0 Hematocrit 42 % N 35-47 Mean Corpuscular Volume 85 fL N 80-97 Mean Corpuscular Hemoglobin 29 pg N 27-31 Mean Corpuscular HGB Conc 34 g/dL N 31-36 Red Cell Distribution Width 14 % N 10.5-15 Platelet Count 305 10^3/uL N 150-450 Mean Platelet Volume 8 um3 N 7.4-10.4 Abs Neutrophils 2.4 10^3/uL N 1.5-7.7 Abs Lymphocytes 2.1 10^3/uL N 1.0-4.8 Abs Monocytes 0.3 10^3/uL N 0-0.8 Abs Eosinophils 0.4 10^3/uL N 0-0.6 Abs Basophils 0 10^3/uL N 0-0.2 Abs Nucleated RBC 0 10^3/uL Granulocyte % 45.8 % N 38-83 Lymphocyte % 40.3 % N 25-47 Monocyte % 5.5 % N 1-9 Eosinophil % 7.9 % High 0-6 Basophil % 0.5 % N 0-2 Nucleated Red Blood Cells % 0 Lipid Profile 08/28/2017 [facility] Triglycerides 102 mg/dL 4 (Trig/Chol/HDL) [address] [place] [address] [phone] Cholesterol 196 mg/dL 5 HDL Cholesterol 48.8 mg/dL 6 LDL Cholesterol 127 mg/dL 7 HIV 1/2 AB 08/28/2017 [facility] HIV 1 2 Nonreactive Nonreactive [address] Antibody [place], [place] [id number] [phone] Rapid 03/23/2017 [facility] Influenza A NEGATIVE N Negative 9 Influenza A & [address] [place] [address] [phone] Influenza B Molecular NEGATIVE N Negative Laboratory 03/23/2017 [facility] Rapid Strep Negative N Negative 10 test finding [address] Molecular [place], [place] [id number] [phone] Laboratory 08/19/2015 [facility] Urine Culture SEE RESULT 11 test finding [address] [place] [address] Sensitivities [phone] Laboratory 06/18/2015 [facility] TSH (Thyroid 0.66 ?IU/mL N 0.34-5.60 12 test finding [address] Stim Horm) [place] [address] [phone] Tri (Antinuclear Antibodies) Negative N Negative 13 Vitamin B12 286 pg/mL N 180-914 14 Methylmalonic Acid Mma 0.24 nmol/mL N <=0.40 15 Folic Acid (Folate) 11.69 ng/mL N >3.99 16 Basic Metabolic Panel 06/18/2015 [facility] Sodium 138 mmol/L N 133-[address] [address] [phone] Potassium 4.4 mmol/L N 3.5-5.0 Chloride 106 mmol/L N 101-111 Co2 Carbon Dioxide 25 mmol/L N 22-32 Anion Gap 7 mmol/L N 2-11 Glucose 91 mg/dL N 70-100 Blood Urea Nitrogen 15 mg/dL N 6-24 Creatinine 0.84 mg/dL N 0.51-0.95 BUN/Creatinine Ratio 17.9 N 8-20 Calcium 9.7 mg/dL N 8.6-10.3 Egfr Non- 77.2 N >60 Egfr 99.2 N >60 17 Laboratory test 08/22/2014 [facility] TSH (Thyroid 0.44 IU/mL N 0.34-5.[address] [place] [address] Horm) [phone] Free T4 0.80 ng/mL N 0.61-1.12 Comp Metabolic Panel 08/22/2014 [facility] Sodium 136 mmol/L N 133-145 [address] [place] [address] [phone] Potassium 4.2 mmol/L N 3.5-5.0 Chloride 106 mmol/L N 101-111 Co2 Carbon Dioxide 23 mmol/L N 22-32 Anion Gap 7 mmol/L N 2-11 Glucose 134 mg/dL High 70-100 Blood Urea Nitrogen 21 mg/dL N 6-24 Creatinine 0.91 mg/dL N 0.51-0.95 BUN/Creatinine Ratio 23.1 High 8-20 Calcium 9.1 mg/dL N 8.6-10.3 Total Protein 6.8 g/dL N 6.4-8.9 Albumin 4.3 g/dL N 3.2-5.2 Globulin 2.5 g/dL N 2-4 Albumin/Globulin Ratio 1.7 N 1-3 Total Bilirubin 0.30 mg/dL N 0.2-1.0 Alkaline Phosphatase 46 U/L N 34-104 Alt 8 U/L N 7-52 Ast 11 U/L Low 13-39 Egfr Non- 70.8 N >60 Egfr 91.0 N >60 18 Laboratory test 08/22/2014 [facility] C Reactive < 1.00 N < 5.00 [address] Protein mg/[place] [address] [phone] Erythrocyte Sed Rate 11 mm/Hr N 0-14 CBC Auto Diff 08/22/2014 [facility] White Blood 6.7 10^3/uL N 4.8-10.[address] [place] [address] [phone] Red Blood Count 4.43 10^6/uL N 4.0-5.4 Hemoglobin 13.2 g/dL N 12.0-16.0 Hematocrit 39 % N 35-47 Mean Corpuscular Volume 88 fL N 80-97 Mean Corpuscular Hemoglobin 30 pg N 27-31 Mean Corpuscular HGB Conc 34 g/dL N 31-36 Red Cell Distribution Width 13 % N 10.5-15 Platelet Count 299 10^3/uL N 150-450 Mean Platelet Volume 8 um3 N 7.4-10.4 Abs Neutrophils 4.3 10^3/uL N 1.5-7.7 Abs Lymphocytes 1.8 10^3/uL N 1.0-4.8 Abs Monocytes 0.2 10^3/uL N 0-0.8 Abs Eosinophils 0.3 10^3/uL N 0-0.6 Abs Basophils 0.1 10^3/uL N 0-0.2 Abs Nucleated RBC 0 10^3/uL N Granulocyte % 64.2 % N 38-83 Lymphocyte % 26.9 % N 25-47 Monocyte % 3.7 % N 1-9 Eosinophil % 4.3 % N 0-6 Basophil % 0.9 % N 0-2 Nucleated Red Blood Cells % 0 N Laboratory 08/22/2014 [facility] Hepatitis C Rna Undetected N Undetected 20 test finding [address] Quantitative IU/[place] [address] [phone] Hepatitis C Genotype TNP N 21 1 Result in log IU/mL is Undetected. ADDITIONAL INFORMATION The quantification range of this assay is 15 to 100,000,000 IU/mL (1.18 log to 8.00 log IU/mL). Testing was performed using the saundra HCV test ([employer] with the Salesfusion0 System. Test Performed by: [facility] [address], [place] [address] 2 Because ethnic data is not always readily available, this report includes an eGFR for both -Americans and non- Americans. The National Kidney Disease Education Program (NKDEP) does not endorse the use of the MDRD equation for patients that are not between the ages of 18 and 70, are , have extremes of body size, muscle mass, or nutritional status, or are non- or non-. According to the National Kidney Foundation, irrespective of diagnosis, the stage of the disease is based on the level of kidney function: Stage Description GFR(mL/min/1.73 m(2)) 1 Kidney damage with normal or decreased GFR 90 2 Kidney damage with mild decrease in GFR 60-89 3 Moderate decrease in GFR 30-59 4 Severe decrease in GFR 15-29 5 Kidney failure <15 (or dialysis) 3 FASTING 10 HOUR 4 Desirable: <150 Borderline High: 150-199 High: 200-499 Very High: >500 5 Desirable: <200 Borderline High: 200-239 High: >239 6 Low: <40 Desirable: 40-60 High: >60 7 Desirable: <100 Near Optimal: 100-129 Borderline High: 130-159 High: 160-189 Very High: >189 8 It is recognized that currently available assays for the detection of antibodies to HIV-1 and/or HIV-2 may not detect all infected individuals. HIV antibodies may be undetectable in some stages of the infection and in some clinical conditions. The performance of this assay has not been established for populations of infants or children. Assayed by Chemiluminescence Microparticle Immunoassay on the Siemens Advia Centaur CP. Values obtained with different methods or kits cannot be used interchangeably.The diagnostic specificity of the ADVIA Centaur 1/O/2 Enhanced assay in the low risk population was 99.90% (6052/6058) with a 95% confidence interval of 99.78 to 99.96%. 9 Tree Tapping Laborer: [id number] 10 Tree Tapping Laborer: [id number] 11 SEE RESULT BELOW Name: HERMAN CARRILLO : [address]: Suzanne Travis MD Acct: [id number] Unit: [id number] AGE: 35 Location: [facility] Re08/19/15 SEX: F Status: DEP ER SPEC: [id number] ESTELLE: 08/19/15-1145 [facility] DR: Suzanne Travis MD REQ: [id number] RECD: 08/19/15 STATUS: ESTELA REDMOND DR: Carolynn Barrientos III, MD _ SOURCE: URINE SPDESC: ORDERED: Urine Culture Procedure Result Reported Site Urine Culture Final 08/22/15- 08 ML Organism 1 ESCHERICHIA COLI [place] Count 75-100,000 (Many) CFU/ML 1. ESCHERICHIA COLI M.I.C. RX --------- ------ Ampicillin <=2 S Cefazolin <=4 S Cefepime <=1 S Ceftriaxone <=1 S Ciprofloxacin <=0.25 S Gentamicin <=1 S Levofloxacin <=0.12 S Meropenem <=0.25 S Nitrofurantoin <=16 S Tetracycline <=1 S Pipercillin/Tazobactam <=4 S Trimethoprim/Sulfamethoxazole <=20 S Amoxicillin/Clavulanic Acid <=2 S Aztreonam <=1 S Contact the Microbiology Department for any additional antibiotic reporting. * ML - [facility] ([facility]) . END OF REPORT * ML=Testing performed at [facility] DEPARTMENT OF PATHOLOGY, [address] [place] [address] Chirag Avila M.D. Director [facility] # [id number] 12 Copy Result to: CAROLYNN BARRIENTOS ([id number]) 13 Copy Result to: CAROLYNN BARRIENTOS ([id number]) 14 Normal Range 180 to 914 Indeterminate Range 145 to 180 Deficient Range <145 15 Test Performed by: [place] [address] Welding Machine Operator: Jasson Castelan II, M.D., Ph.D. 16 Copy Result to: CAROLYNN BARRIENTOS ([id number]) 17 Because ethnic data is not always readily available, this report includes an eGFR for both -Americans and non- Americans. The National Kidney Disease Education Program (NKDEP) does not endorse the use of the MDRD equation for patients that are not between the ages of 18 and 70, are , have extremes of body size, muscle mass, or nutritional status, or are non- or non-. According to the National Kidney Foundation, irrespective of diagnosis, the stage of the disease is based on the level of kidney function: Stage Description GFR(mL/min/1.73 m(2)) 1 Kidney damage with normal or decreased GFR 90 2 Kidney damage with mild decrease in GFR 60-89 3 Moderate decrease in GFR 30-59 4 Severe decrease in GFR 15-29 5 Kidney failure <15 (or dialysis) 18 Because ethnic data is not always readily available, this report includes an eGFR for both -Americans and non- Americans. The National Kidney Disease Education Program (NKDEP) does not endorse the use of the MDRD equation for patients that are not between the ages of 18 and 70, are , have extremes of body size, muscle mass, or nutritional status, or are non- or non-. According to the National Kidney Foundation, irrespective of diagnosis, the stage of the disease is based on the level of kidney function: Stage Description GFR(mL/min/1.73 m(2)) 1 Kidney damage with normal or decreased GFR 90 2 Kidney damage with mild decrease in GFR 60-89 3 Moderate decrease in GFR 30-59 4 Severe decrease in GFR 15-29 5 Kidney failure <15 (or dialysis) 19 Acute inflammation: >10.00 20 Result in log IU/mL is Undetected. ADDITIONAL INFORMATION The quantification range of this assay is 15 to 100,000,000 IU/mL (1.18 log to 8.00 log IU/mL). Testing was performed by the SAUNDRA AmpliPrep/SAUNDRA TaqMan HCV Test, version 2.0 ([employer] Test Performed by: [place] [id number] Welding Machine Operator: Checo Crouch M.D. 21 HCV Genotype, S was cancelled on 08/25/2014 at 14:13; Genotyping not performed due to inability to generate sufficient target sequence for genotype analysis. Test Performed by: [address] [address] Welding Machine Operator: Checo Crouch M.D. Procedures Date Code Description Status 11/08/2013 67635 EKG, Interpretation Only Completed 11/07/2013 15713 EKG, Interpretation Only Completed Encounters Type Date Location Provider Dx Diagnosis Office Visit 06/26/2017 [facility] Dermatology Ronald Noe MD L40.0 Psoriasis vulgaris 10:50a B35.4 Tinea corporis Office Visit 06/21/2017 8:30a [facility] Internal Sharifa Z86.19 Personal history Arin Burrows M.D. of [facility] infectious and parasitic diseases F90.9 Attention-deficit hyperactivity disorder, unspecified type F17.210 Nicotine dependence, cigarettes, uncomplicated L40.8 Other psoriasis Z13.220 Encounter for screening for lipoid disorders Z11.4 Encounter for screening for human immunodeficiency virus Office Visit 03/02/2016 3:40p [facility] Internal Carolynn Means M79.672 Pain in left Arin Barrientos M.D. foot Gadiel F41.9 Anxiety disorder, unspecified Office Visit 10/07/2015 1:00p [facility] Internal Carolynn Barrientos, R68.84 Jaw pain Arin Ramesh M.D. L40.0 Psoriasis vulgaris Z72.4 Inappropriate diet and eating habits Office Visit 06/17/2015 1:00p [facility] Rebecca Stefany, R20.2 Paresthesia of Services Of [facility] skin R20.0 Anesthesia of skin R55 Syncope and collapse Office Visit 05/26/2015 4:00p [facility] Brianne Means G45.4 Transient global Arin Barrientos M.D. amnesia Gadiel F32.9 Major depressive disorder, single episode, unspecified Office Visit 10/02/2014 [facility] Sagar Mercer 780.2 Syncope & 9:00a Clinic Gilmar Chavarria Collapse Office Visit 08/21/2014 [facility] Internal Medicine Carolynn Means 311 Depressive 3:20p - Gadiel Barrientos M.D. 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 Hospitalists 719.40 Pain Joint Site Unspec Office Visit 11/08/2013 [facility] Silvia Mercer 427.89 Cardiac 9:19a Gilmar Blanco Dysrhythmia Other Office Visit 11/08/2013 [facility] Em Mohr, 780.4 Dizziness & 2:29p Assoc,pc Gilmar Giddiness Hospitalists 427.81 Sinoatrial Node Dysfunction 070.54 Hepatitis C Viral Chronic W/O Hepatic Coma Office Visit 11/07/2013 2:29p [facility] Isela Kaufman, 427.81 Sinoatrial Node Assoc,pc N.P. Dysfunction Hospitalists 780.4 Dizziness & Giddiness 070.54 Hepatitis C Viral Chronic W/O Hepatic Coma Plan of Treatment 07/23/2018 - Sharifa Burrows M.D.F90.9 Attention-deficit hyperactivity disorder , unspecified typeComments:we discussed reducing the dose of Methyphenidate to 5 mg as it can cause the anxietyFollow up:please schedule factory manager exam with Dr. HenryF17.210 Nicotine dependence, cigarettes, uncomplicatedNew Medication: Nicotine 2 mg - as hdyveuO62.9 Major depressive disorder, single episode, unspecifiedNew Medication:Bupropion HCL ER (XL) 150 mg - 1 tab every 12 hoursNew Labs:Comp Metabolic Panel, Ordered: 07/23/18Z23 Encounter for immunization
[2018-07-31 14:20] VITALS: BP 116/74
--- NOTE | 2018-07-31 15:21 | UC ---
Hand/Wrist HPI - HPI Summary HPI Summary: 38 yo female presents with RIGHT wrist pain. She tells me that today she was mopping and twisted the mop and heard a pop in her right wrist. Has had pain in this wrist since. She is right handed. She has been applying ice with no relief. She is concerned because she fractured this wrist about 2 years ago and took her cast off herself early. Has some radiation of pain into her hand/ fingers. Denies numbness or tingling. - History Of Current Complaint Chief Complaint: UCUpperExtremity Stated Complaint: WRIST INJURY Time Seen by Provider: 07/31/18 15:21 Hx Obtained From: Patient Hx Last Menstrual Period: 07/21/18 Onset/Duration: Sudden Onset Severity Initially: Severe Severity Currently: Severe Pain Intensity: 8 Pain Scale Used: 0-10 Numeric - Allergies/Home Medications Allergies/Adverse Reactions: Allergies Allergy/AdvReac Type Severity Reaction Status Date / Time No Known Allergies Allergy Verified 07/31/18 14:20 Home Medications: Home Medications Ibuprofen TAB* [Motrin TAB* 600 MG] 800 mg PO Q6H PRN 07/31/18 [History Confirmed 07/31/18] PMH/Surg Hx/FS Hx/Imm Hx - Additional Past Medical History Additional PMH: ADHD - Surgical History Surgical History: Yes Surgery Procedure, Year, and Place: C-Sections, 2001 2006 2009, [facility]. Cholecystectomy, 2011, [facility], thigh debridement - infection. tubal ligation - Family History Known Family History: Positive: None Negative: Cardiac Disease, Hypertension, Diabetes, Respiratory Disease - Social History Lives: With Family Alcohol Use: None Substance Use Type: None Substance Use Comment - Amount & Last Used: amphetamines - none for 6 months or more 08/31 Smoking Status (MU): Light Every Day Tobacco Smoker Type: Cigarettes Amount Used/How Often: 42-3 cig/ PER DAY Have You Smoked in the Last Year: Yes Household Exposure Type: Cigarettes - Immunization History Most Recent Influenza Vaccination: Never Most Recent Tetanus Shot: 4yrs ago Most Recent Pneumonia Vaccination: never Review of Systems All Other Systems Reviewed And Are Negative: Yes Constitutional: Positive: Negative Skin: Positive: Negative Respiratory: Positive: Negative Cardiovascular: Positive: Negative Neurovascular: Positive: Negative Musculoskeletal: Positive: Other: - Right wrist pain Neurological: Positive: Negative Psychological: Positive: Negative Physical Exam - Summary Physical Exam Summary: GENERAL: NAD. WDWN. No pain distress. SKIN: No rashes, sores, lesions, or open wounds. CHEST: No accessory muscle use. Breathing comfortably and in no distress. CV: Pulses intact radial and ulnar. Cap refill <2seconds MSK: RIGHT WRIST: Moderate TTP overlying entire dorsal and volar wrist. Decreased ROM due to pain. Able to make a fist and metal and plastic heater.No edema or obvious bony deformities. No snuffbox tenderness. NEURO: Alert. Sensations intact hand and all fingers. PSYCH: Age appropriate behavior. Triage Information Reviewed: Yes Vital Signs: Initial Vital Signs Temp 98.3 F 07/31/18 14:15 Pulse 85 07/31/18 14:15 Resp 18 07/31/18 14:15 BP 116/74 07/31/18 14:15 Pulse Ox 99 07/31/18 14:15 Vital Signs Reviewed: Yes Hand/Wrist Course/Dx - Course Course Of Treatment: XR: REPORT AND IMPRESSION: #. Negative for fracture. #. Unchanged ulnar minus variance which may predispose to AVN of the lunate. No. radiographic evidence for AVN of the lunate at this time. Articular alignment is otherwise. normal. #. Mild osteoarthritis at the distal radioulnar joint. No additional arthropathic change. evident. #. Unremarkable soft tissue contours. Suspect wrist sprain. Pt placed in cock-up splint and advised to RICE , take ibuprofen, and f/u with Orthopedics for further evaluation if symptoms do not improve. - Differential Dx/Diagnosis Provider Diagnosis: Right wrist sprain Discharge - Sign-Out/Discharge Documenting (check all that apply): Patient Departure All imaging exams completed and their final reports reviewed: Yes - Discharge Plan Condition: Stable Disposition: HOME Patient Education Materials: Wrist Sprain (ED) Referrals: Sharifa Burrows MD [Primary Care Provider] - Preston Man MD [Medical Doctor] - As Soon As Possible Additional Instructions: If you develop a fever, shortness of breath, chest pain, new or worsening symptoms - please call your PCP or go to the ED. - Billing Disposition and Condition Condition: STABLE Disposition: Home
== END 2018-07-31 15:55 | disposition home or self-care (01) ==
LOC: UCEAST 13:53
DX: S63.501A Unspecified sprain of right wrist, initial encounter (principal); X50.1XXA Overexertion from prolonged static or awkward postures, initial encounter; Y93.E5 Activity, floor mopping and cleaning; Y92.9 Unspecified place or not applicable; M19.031 Primary osteoarthritis, right wrist; F17.210 Nicotine dependence, cigarettes, uncomplicated
CPT/HCPCS: 99212; G0463

== ENCOUNTER 2018-09-04 19:54 | Emergency (ER) | payer OTHER ==
[2018-09-04 20:04] VITALS: BP 119/71
--- NOTE | 2018-09-04 20:19 | UC ---
Skin Complaint HPI - HPI Summary HPI Summary: developed pain and swelling in the right antecubital space with surrounding erythema. developed pain and swelling about three days ago and has persisted since that time. denies fever or chills . thought she had been bitten by a spider - History of Current Complaint Chief Complaint: UCSkin Time Seen by Provider: 09/04/18 19:56 Stated Complaint: SKIN COMPLAINT Hx Obtained From: Patient Hx Last Menstrual Period: 2 weeks ago Onset/Duration: Gradual Onset, Lasting Days Current Severity: Moderate Pain Intensity: 10 Location: Discrete Related History: Insect Bite/Sting - Allergy/Home Medications Allergies/Adverse Reactions: Allergies Allergy/AdvReac Type Severity Reaction Status Date / Time No Known Allergies Allergy Verified 09/04/18 19:58 Home Medications: Home Medications Bupropion XL* [Wellbutrin XL *] 150 mg PO BID 09/04/18 [History Confirmed ] PMH/Surg Hx/FS Hx/Imm Hx Previously Healthy: Yes - hx. of adhd - Surgical History Surgical History: Yes Surgery Procedure, Year, and Place: C-Sections, 2001 2005 2009, [facility]. Cholecystectomy, 2011, [facility], thigh debridement - infection. tubal ligation - Family History Known Family History: Positive: None Negative: Cardiac Disease, Hypertension, Diabetes, Respiratory Disease Family History: no known family history of cardio pulmonary disease or clotting disorders - Social History Alcohol Use: None Substance Use Type: None Substance Use Comment - Amount & Last Used: amphetamines - none for 6 months or more 08/31 Smoking Status (MU): Light Every Day Tobacco Smoker Type: Cigarettes Amount Used/How Often: 42-3 cig/ PER DAY Have You Smoked in the Last Year: Yes Household Exposure Type: Cigarettes - Immunization History Most Recent Influenza Vaccination: Never Most Recent Tetanus Shot: 4yrs ago Most Recent Pneumonia Vaccination: never Review of Systems All Other Systems Reviewed And Are Negative: Yes Constitutional: Positive: Negative Skin: Positive: Other - swelling right antecubital fossa Eyes: Positive: Negative ENT: Positive: Negative Respiratory: Positive: Negative Cardiovascular: Positive: Negative Motor: Positive: Negative Physical Exam Triage Information Reviewed: Yes Appearance: Pain Distress Vital Signs: Initial Vital Signs Temp 36.3 C 09/04/18 19:58 Pulse 86 09/04/18 19:58 Resp 18 09/04/18 19:58 BP 119/71 09/04/18 19:58 Pulse Ox 100 09/04/18 19:58 Respiratory Exam: Normal Respiratory: Positive: Chest non-tender Skin Exam: Other - large swelling with surrounding erythema. consistent with abscess. no obvious track arcos seen Course/Dx - Diagnoses Provider Diagnosis: Abscess of antecubital fossa Discharge - Sign-Out/Discharge Documenting (check all that apply): Patient Departure All imaging exams completed and their final reports reviewed: No Studies - Discharge Plan Condition: Fair Disposition: HOME-RECOMMEND TO ED Patient Education Materials: Abscess (ED) Referrals: Sharifa Burrows MD [Primary Care Provider] - - Billing Disposition and Condition Condition: FAIR Disposition: Home-Recommend to ED
== END 2018-09-04 20:30 | disposition home health service (06) ==
LOC: UCEAST 19:54
DX: L02.413 Cutaneous abscess of right upper limb (principal); F17.210 Nicotine dependence, cigarettes, uncomplicated
CPT/HCPCS: 99212; G0463

== ENCOUNTER 2019-02-23 11:07 | Emergency (ER) | payer OTHER ==
[2019-02-23 11:46] VITALS: BP 107/73
--- NOTE | 2019-02-23 11:48 | UC ---
Hand/Wrist HPI - HPI Summary HPI Summary: 39-year-old female who was sent here by her employer because of right wrist pain which she has been having for about 5 days progressively worsening. She has a history of a past fractured wrist about 5 years ago. She denies any recent injury. 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 - History Of Current Complaint Chief Complaint: UCUpperExtremity Stated Complaint: R ARM CONCERN Time Seen by Provider: 02/23/19 11:33 Hx Obtained From: Patient Hx Last Menstrual Period: yesterday ?: No Onset/Duration: Gradual Onset Severity Initially: Mild Severity Currently: Moderate Pain Intensity: 8 Character Of Pain: Dull, Aching Aggravating Factor(s): Movement, Flexion, Extension Alleviating Factor(s): Nothing Associated Signs And Symptoms: Positive: Negative - Allergies/Home Medications Allergies/Adverse Reactions: Allergies Allergy/AdvReac Type Severity Reaction Status Date / Time No Known Allergies Allergy Verified 02/23/19 11:46 PMH/Surg Hx/FS Hx/Imm Hx Previously Healthy: Yes - Surgical History Surgical History: Yes Surgery Procedure, Year, and Place: C[facility]Sections, 2001 2006 2009, [facility]. Cholecystectomy, 2011, [facility], thigh debridement - infection. tubal ligation - Family History Known Family History: Positive: None Negative: Cardiac Disease, Hypertension, Diabetes, Respiratory Disease Family History: no known family history of cardio pulmonary disease or clotting disorders - Social History Alcohol Use: None Substance Use Type: None Substance Use Comment - Amount & Last Used: amphetamines - none for 6 months or more 08/31 Smoking Status (MU): Light Every Day Tobacco Smoker Type: Cigarettes Amount Used/How Often: 42-3 cig/ PER DAY Have You Smoked in the Last Year: Yes Household Exposure Type: Cigarettes - Immunization History Most Recent Influenza Vaccination: Never Most Recent Tetanus Shot: 4yrs ago Most Recent Pneumonia Vaccination: never Review of Systems All Other Systems Reviewed And Are Negative: Yes Motor: Positive: Decreased ROM - Pain with flexion/extension of right wrist Musculoskeletal: Positive: Decreased ROM, Myalgia Neurological: Positive: Negative Psychological: Positive: Negative Is Patient Immunocompromised?: No Physical Exam Triage Information Reviewed: Yes Appearance: Well-Appearing, No Pain Distress, Well-Nourished Vital Signs: Initial Vital Signs Temp 98.2 F 02/23/19 11:35 Pulse 93 02/23/19 11:35 Resp 20 02/23/19 11:35 BP 107/73 02/23/19 11:35 Pulse Ox 99 02/23/19 11:35 Vital Signs Reviewed: Yes Musculoskeletal: Positive: Strength Intact, No Edema, Other: - Pt states pain shoots up wrist with ROM. Good periph pulses, neurosensation, cap refill, good finger strength with flexion/extension agains resistance. Neurological: Positive: Alert, Muscle Tone Normal Psychological Exam: Normal Skin Exam: Normal Hand/Wrist Course/Dx - Course Course Of Treatment: Right wrist: REPORT AND IMPRESSION: #. Chronic finding of ulnar minus variance. Articular alignment is otherwise normal. #. Negative for fracture or radiographic findings of avascular necrosis. #. Mild degenerative arthropathy at the distal radioulnar joint. #. Mild predominant volar soft tissue swelling. A cock up splint was applied. Pt is to follow up with ortho on Monday if no improvement. - Differential Dx/Diagnosis Provider Diagnosis: Tendonitis of wrist, right Discharge - Sign-Out/Discharge Documenting (check all that apply): Patient Departure All imaging exams completed and their final reports reviewed: Yes - Discharge Plan Condition: Fair Disposition: HOME Patient Education Materials: Tendinitis (ED) Forms: *Work Release Referrals: Sharifa Burrows MD [Primary Care Provider] - Preston Armenta MD [Medical Doctor] - Additional Instructions: Elevate as much as possible, avoid repetitive motion. Tylenol every 4 hours and Motrin every 8 hours for pain. May apply heat to the sore area. Wear the arm splint for comfort. - Billing Disposition and Condition Condition: FAIR Disposition: Home
== END 2019-02-23 13:01 | disposition home or self-care (01) ==
LOC: UCCORT 11:07
DX: M77.9 Enthesopathy, unspecified (principal); F17.210 Nicotine dependence, cigarettes, uncomplicated
CPT/HCPCS: 99213; G0463

== ENCOUNTER 2019-02-28 11:47 | Emergency (ER) | payer OTHER ==
[2019-02-28 11:53] VITALS: BP 117/80
[2019-02-28] MEDS ORDERED: Ketorolac INJ* 30 MG/ML 1 ML VIAL IM ONE (13:35)
[2019-02-28] MEDS ORDERED: Cyclobenzaprine TAB* 10 MG PO ONE (13:36)
--- NOTE | 2019-02-28 13:50 | ED ---
Back Pain - HPI Summary HPI Summary: 39-year-old female presents with neck and back pain for the past 6 months. She states that pain is in her buttocks and greatest on the left. She states it is very sharp. Has pain over the SI joint. States she's been having increasing pain for the past couple days. Has been taking ibuprofen with some relief. No saddle anesthesias. No loss of bowel or bladder. No urinary symptoms. No fevers. No history IV drug use. Was seen at primary told to come in for imaging. - History of Current Complaint Chief Complaint: EDBackInjuryPain Stated Complaint: BACK PAIN PER PT Time Seen by Provider: 02/28/19 12:58 Hx Last Menstrual Period: yesterday Pain Intensity: 8 - Allergies/Home Medications Allergies/Adverse Reactions: Allergies Allergy/AdvReac Type Severity Reaction Status Date / Time No Known Allergies Allergy Verified 02/28/19 11:53 PMH/Surg Hx/FS Hx/Imm Hx Endocrine/Hematology History: Reports: Other Endocrine/Hematological Disorders - Possible hypothyroid Denies: Hx Diabetes, Hx Thyroid Disease Cardiovascular History: Denies: Hx Hypertension, Hx Pacemaker/ICD Respiratory History: Denies: Hx Asthma, Hx Chronic Obstructive Pulmonary Disease (COPD) GI History: Reports: Hx Gall Bladder Disease - Choly, Hx Irritable Bowel - IBD Denies: Hx Ulcer History: Denies: Hx Renal Disease Sensory History: Reports: Hx Contacts or Glasses Denies: Hx Hearing Aid Opthamlomology History: Reports: Hx Contacts or Glasses Neurological History: Reports: Other Neuro Impairments/Disorders - HX of concussion 4-5 Psychiatric History: Reports: Hx Anxiety, Hx Attention Deficit Hyperactivity Disorder, Hx Eating Disorder, Hx Depression, Hx Post Traumatic Stress Disorder, Hx Community Mental Health Tx, Hx Bipolar Disorder, Hx of Violent Episodes Against Others, Hx Substance Abuse Denies: Hx Panic Disorder, Hx Inpatient Treatment, Hx Schizophrenia, Hx Suicide Attempt, Other Psychiatric Issues/Disorders - Surgical History Surgery Procedure, Year, and Place: C-Sections, 2002 2006 2010, [facility]. Cholecystectomy, 2012, [facility], thigh debridement - infection. tubal ligation Infectious Disease History: No Infectious Disease History: Reports: Hx of Known/Suspected MRSA - hx, Hx Shingles, History Other Infectious Disease Denies: Hx Clostridium Difficile, Hx Hepatitis, Hx Human Immunodeficiency Virus (HIV), Hx Tuberculosis, Hx Known/Suspected VRE, Hx Known/Suspected VRSA, Traveled Outside the [place] in Last 30 Days - Family History Known Family History: Positive: None Negative: Cardiac Disease, Hypertension, Diabetes, Respiratory Disease Family History: no known family history of cardio pulmonary disease or clotting disorders - Social History Alcohol Use: None Substance Use Type: Reports: None Substance Use Comment - Amount & Last Used: amphetamines - none for 6 months or more 08/31 Smoking Status (MU): Light Every Day Tobacco Smoker Type: Cigarettes Amount Used/How Often: 42-3 cig/ PER DAY Have You Smoked in the Last Year: Yes Review of Systems Negative: Fever Negative: Chest Pain Negative: Shortness Of Breath Positive: Myalgia - back pain All Other Systems Reviewed And Are Negative: Yes Physical Exam Triage Information Reviewed: Yes Vital Signs On Initial Exam: Initial Vitals Temp Pulse Resp BP Pulse Ox 98.2 F 65 16 117/80 99 02/28/19 11:50 02/28/19 11:50 02/28/19 11:50 02/28/19 11:50 02/28/19 11:50 Vital Signs Reviewed: Yes Appearance: Positive: Well-Appearing Skin: Positive: Warm, Dry Head/Face: Positive: Normal Head/Face Inspection Eyes: Positive: Normal, Conjunctiva Clear ENT: Positive: Pharynx normal Respiratory/Lung Sounds: Positive: Clear to Auscultation, Breath Sounds Present Cardiovascular: Positive: Normal, RRR Musculoskeletal: Positive: Strength/ROM Intact - neck and back, Limited @ - hands, but good strength in upper arm, Other - pos SLR left, good pulses, dec sensation left, tenderness SI joint left, tenderness lower back and neck Neurological: Positive: Sensory/Motor Intact, Reflexes Intact - biceps, Babinski Bilateral - normal Psychiatric: Positive: Normal Diagnostics - Vital Signs Vital Signs Temp Pulse Resp BP Pulse Ox 02/28/19 11:50 98.2 F 65 16 117/80 99 - Laboratory Lab Statement: Any lab studies that have been ordered have been reviewed, and results considered in the medical decision making process. Back Pain Course/Dx - Course Course Of Treatment: 39-year-old female presents with neck and back pain for the past 6 months. She states that pain is in her buttocks and greatest on the left. She states it is very sharp. Has pain over the SI joint. States she's been having increasing pain for the past couple days. Has been taking ibuprofen with some relief. No saddle anesthesias. No loss of bowel or bladder. No urinary symptoms. No fevers. No history IV drug use. Was seen at primary told to come in for imaging. On exam has tenderness over SI joint on left. Tenderness lower back and neck. Has good strength in upper arms except for in hands has decreased strength. Biceps and the Babinski's reflex intact. Has decreased sensation on left side lower leg. Good range of motion. patient states will not do urine or blood work. Ordered imaging and patient eloped. - Diagnoses Differential Diagnosis/HQI/PQRI: Positive: Herniated Disc, Strain, Sprain Provider Diagnoses: Back pain Discharge - Sign-Out/Discharge Documenting (check all that apply): Patient Departure - Discharge Plan Condition: Stable Disposition: ELOPEMENT Referrals: Sharifa Burrows MD [Primary Care Provider] - - Billing Disposition and Condition Condition: STABLE Disposition: Elopement
--- OUTSIDE RECORDS SUMMARY | 2019-02-28 14:37 | XMS REPORT | Continuity of Care Document ---
:1980 External Reference #:[id number] Author Name Sharifa Burrows M.D. 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 Onset: Psoriasis Sharifa Burrows M.D. Onset: 06/21/2017 Opioid dependence in remission Sharifa Burrows M.D. Onset: 06/21/2017 Social History Type Date Description Comments Sex Unknown ETOH Use Denies alcohol use Tobacco Use Start: Unknown Patient is a current smoker, smokes every day Recreational Drug Use Former Drug User opioids meth , IV drugs at some point contacted Hep C which cleared Tobacco Use Start: Unknown Light tobacco smoker (10 or fewer cigarettes/day) Smoking Status Reviewed: 02/28/19 Light tobacco smoker (10 or fewer cigarettes/day) Exercise Type/Frequency Exercises regularly Allergies, Adverse Reactions, Alerts Description No Known Drug Allergies Medications Active Medications SIG Qnty Indications Ordering Date Provider Ibuprofen 3 Times A Day 20tabs Unknown 01/13/2019 600mg Tablets as Needed as needed for Pain Bupropion Hydrochloride 1 tab every 12 60tabs F32.9 Sharifa Burrows, 2018 ER (XL) hours M.D. 150mg Tablets ER 24HR Methylphenidate HCL one to one and 90tabs Sharifa Burrows, 10mg a half twice a M.D. Tablets day History Medications Doxycycline Hyclate Every 12 Hours 14caps Unknown 01/13/2019 - 02/27/2019 100mg Capsules Immunizations CPT Code Status Date Vaccine Lot # [id number] Given 07/23/2018 Influenza Virus Vaccine, Quadrivalent, Split, [id number] Preservative Free Vital Signs Date Vital Result Comment 02/28/2019 8:41am Height 66 inches 5'6" Weight 182.25 lb Heart Rate 65 /min BP Systolic 114 mmHg BP Diastolic 74 mmHg Body Temperature 96.8 F O2 % BldC Oximetry 98 % BMI (Body Mass Index) 29.4 kg/m2 07/23/2018 9:54am Height 66 inches 5'6" Weight 205.00 lb Heart Rate 87 /min BP Systolic Sitting 120 mmHg BP Diastolic Sitting 80 mmHg O2 % BldC Oximetry 98 % BMI (Body Mass Index) 33.1 kg/m2 Results Description No Information Available Procedures Description No Information Available Medical Devices Description No Information Available Encounters Description No Information Available Assessments Date Code Description Provider 02/28/2019 F90.9 Attention-deficit hyperactivity disorder, Sharifa Burrows M.D. 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 Functional Status Description No Information Available Mental Status Description No Information Available Referrals Description No Information Available
== END 2019-02-28 13:59 | disposition left against medical advice (07) ==
LOC: ED 11:47
DX: M54.9 Dorsalgia, unspecified (principal); F17.210 Nicotine dependence, cigarettes, uncomplicated
CPT/HCPCS: 96372; 99282

== ENCOUNTER 2019-04-09 09:00 | Emergency (ER) | payer OTHER ==
--- OUTSIDE RECORDS SUMMARY | 2019-04-09 09:06 | XMS REPORT | Continuity of Care Document ---
:1980 External Reference #:[id number] Author Name Sharifa Burrows M.D. 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 Tablets day Ibuprofen 3 Times A Day 20tabs Unknown 01/13/2019 600mg Tablets as Needed as needed for Pain Methylphenidate HCL one to one and 90tabs Sharifa Burrows, 10mg a half twice a M.D. Tablets day History Medications Doxycycline Hyclate Every 12 Hours 14caps Unknown 01/13/2019 - 100mg 02/27/2019 Capsules Bupropion Hydrochloride 1 tab every 12 60tabs F32.9 Sharifa Burrows, 2018 - ER (XL) hours [place] 03/11/2019 150mg Tablets ER 24HR Medications Administered in Office Medication SIG Qnty Indications Ordering Provider Date Toradol Injection 15MG Sharifa Burrows M.D. 03/11/2019 Injection Immunizations CPT Code Status Date Vaccine Lot # [id number] Given 07/23/2018 Influenza Virus Vaccine, Quadrivalent, Split, [id number] Preservative Free Vital Signs Date Vital Result Comment 03/11/2019 8:41am Height 66 inches 5'6" Weight 183.00 lb Heart Rate 59 /min BP Systolic Sitting 120 mmHg BP Diastolic Sitting 80 mmHg O2 % BldC Oximetry 98 % BMI (Body Mass Index) 29.5 kg/m2 02/28/2019 8:41am Height 66 inches 5'6" Weight 182.25 lb Heart Rate 65 /min BP Systolic 114 mmHg BP Diastolic 74 mmHg Body Temperature 96.8 F O2 % BldC Oximetry 98 % BMI (Body Mass Index) 29.4 kg/m2 Results Description No Information Available Procedures Date Code Description Status 03/11/2019 65945 Admin Of Inj Completed Medical Devices Description No Information Available Encounters Type Date Location Provider Dx Diagnosis 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
[2019-04-09 09:20] VITALS: BP 122/87
--- NOTE | 2019-04-09 09:42 | UC ---
Neck Pain HPI - HPI Summary HPI Summary: PATIENT COMPLAINS OF YEARS OF INTERMITTENT NECK PAIN. STATES THAT OVER THE PAST 4 DAYS IT HAS BECOME CONSTANT. SHARP, POSTERIOR NECK PAIN. REPORTS IT FEELS LIKE HER "NECK BONES ARE PUSHING THROUGH TO THE FRONT OF HER THROAT ". STATES SHE HAS NUMBNESS/TINGLING IN BOTH OF HER ARMS. DENIES CHEST PAIN OR NAUSEA. NO TRAUMA. SAW HER PCP A COUPLE OF WEEKS AGO AND WAS GIVEN PAIN MEDICATION AND A MUSCLE RELAXER WHICH SHE SAYS IS NOT HELPING MUCH. IS REQUESTING AN MRI. - History of Current Complaint Chief Complaint: UCBackPain Stated Complaint: NECK / SHOULDER / ARM PAIN Time Seen by Provider: 04/09/19 09:11 Hx Obtained From: Patient Hx Last Menstrual Period: a few weeks ago Mechanism Of Injury: No Known Trauma Timing: Constant Onset/Duration: Gradual Onset, Still Present Severity: Severe Pain Intensity: 10 Pain Scale Used: 0-10 Numeric Location: Discrete At: - POSTERIOR NECK Character: Sharp Aggravating Factors: Nothing Alleviating Factors: Nothing Associated Signs & Symptoms: Positive: Paresthesia - Allergies/Home Medications Allergies/Adverse Reactions: Allergies Allergy/AdvReac Type Severity Reaction Status Date / Time No Known Allergies Allergy Verified 04/09/19 09:17 Home Medications: Home Medications Cyclobenzaprine HCl 1 tab PO ONCE PRN 04/09/19 [History Confirmed 04/09/19] Methylphenidate HCl [Methylphenidate ER] 10 mg PO TID 04/09/19 [History Confirmed 04/09/19] PMH/Surg Hx/FS Hx/Imm Hx - Additional Past Medical History Additional PMH: ADHD - Surgical History Surgical History: Yes Surgery Procedure, Year, and Place: C-Sections, 2001 2005 2009, [facility]. Cholecystectomy, 2011, [facility],. thigh debridement - infection. tubal ligation - Family History Known Family History: Positive: None Negative: Cardiac Disease, Hypertension, Diabetes, Respiratory Disease Family History: no known family history of cardio pulmonary disease or clotting disorders - Social History Alcohol Use: None Substance Use Type: Marijuana Substance Use Comment - Amount & Last Used: amphetamines - none for 6 months or more 08/31 Smoking Status (MU): Light Every Day Tobacco Smoker Type: Cigarettes Amount Used/How Often: less than a ppd Have You Smoked in the Last Year: Yes Household Exposure Type: Cigarettes - Immunization History Most Recent Influenza Vaccination: Never Most Recent Tetanus Shot: 4yrs ago Most Recent Pneumonia Vaccination: never Review of Systems All Other Systems Reviewed And Are Negative: Yes Constitutional: Positive: Negative Skin: Positive: Negative Respiratory: Positive: Negative Cardiovascular: Positive: Negative Gastrointestinal: Positive: Negative Musculoskeletal: Positive: Arthralgia Neurological: Positive: Paresthesia Physical Exam Triage Information Reviewed: Yes Appearance: Well-Nourished, Pain Distress - MOD/SEVERE - PT WRITHING AROUND, STRETCHING AND CONTORTING HER HEAD/NECK REGION Vital Signs: Initial Vital Signs Temp 98.3 F 04/09/19 09:07 Pulse 89 04/09/19 09:07 Resp 30 04/09/19 09:07 BP 122/87 04/09/19 09:07 Pulse Ox 99 04/09/19 09:07 Vital Signs Reviewed: Yes Eyes: Positive: Conjunctiva Clear ENT: Positive: Hearing grossly normal Neck: Positive: Supple, No Lymphadenopathy Respiratory Exam: Normal Cardiovascular Exam: Normal Abdomen Description: Positive: Soft Musculoskeletal: Positive: ROM Intact, No Edema, Other: - TTP DIFFUSELY POSTERIOR NECK. NO SWELLING Neurological: Positive: Alert Psychological: Positive: Age Appropriate Behavior Skin: Negative: Rashes Diagnostics - EKG Cardiac Rate: NL - 70BPM Cardiac Rhythm: Sinus: Normal Ectopy: None ST Segment: Normal Neck Pain Course/Dx - Course Course Of Treatment: PATIENT REPORTS YEARS OF INTERMITTENT NECK PAIN THAT SHE STATES HAS BECOME CONSTANT OVER THE PAST 4 DAYS. SHE DENIES ANY DISCRETE INJURY. STATES SHE FEELS LIKE HER CERVICAL SPINE IS PUSHING THROUGH TO THE FRONT OF HER NECK. ALSO COMPLAINING OF NUMBNESS AND TINGLING IN BOTH HER ARMS. IS WRITHING AROUND IN THE EXAM ROOM UNABLE TO BE STILL. SHE IS DEMANDING AN MRI. I ADVISED THAT WE DO NOT HAVE THE ABILITY TO OBTAIN AN MRI THROUGH THE URGENT CARE. DISCUSSED TRANSFER TO THE EMERGENCY ROOM FOR FURTHER EVALUATION OF HER INTRACTABLE PAIN AND FOR FURTHER EVALUATION OF HER PARESTHESIAS. PATIENT REFUSED TRANSFER AND REFUSED TO SIGN AMA FORMS. - Differential Dx/Diagnosis Provider Diagnosis: Neck pain, Paresthesia and pain of both upper extremities Discharge ED - Sign-Out/Discharge Documenting (check all that apply): Patient Departure All imaging exams completed and their final reports reviewed: No Studies - Discharge Plan Condition: Stable Disposition: AGAINST MEDICAL ADVICE Referrals: Sharifa Burrows MD [Primary Care Provider] - - Billing Disposition and Condition Condition: STABLE Disposition: Against Medical Advice
== END 2019-04-09 09:40 | disposition left against medical advice (07) ==
LOC: UCEAST 09:00
DX: M54.2 Cervicalgia (principal); R20.2 Paresthesia of skin; F90.9 Attention-deficit hyperactivity disorder, unspecified type; F17.210 Nicotine dependence, cigarettes, uncomplicated
CPT/HCPCS: 93005; 99212; G0463

== ENCOUNTER 2019-06-20 09:24 | Emergency (ER) | payer SELFPAY ==
[2019-06-20 09:34] VITALS: BP 119/76
--- NOTE | 2019-06-20 10:04 | UC ---
Skin Complaint HPI - HPI Summary HPI Summary: 39 yo female presents with shoulder soft tissue mass. She tells me that for the last week she has been having pain in her right neck and posterior shoulder. Yesterday she noticed a large red and swollen area to her right upper back/ posterior shoulder. Today the pain has significantly increased and is radiating into the back of her neck and head with extending redness here. She has a history of IVDA and MRSA, but denies use recently. No injury or trauma to the area. Has been feeling feverish over the last week, but has not taken her temperature. Feels nauseous and has a decreased appetite. Denies SOB, chest pain , numbness. - History of Current Complaint Chief Complaint: UCSkin Time Seen by Provider: 06/20/19 10:04 Stated Complaint: LUMP ON NECK/SHOULDER Hx Obtained From: Patient Hx Last Menstrual Period: 06/10/19 Onset/Duration: Gradual Onset Onset Severity: Moderate Current Severity: Severe Pain Intensity: 10 Pain Scale Used: 0-10 Numeric - Allergy/Home Medications Allergies/Adverse Reactions: Allergies Allergy/AdvReac Type Severity Reaction Status Date / Time No Known Allergies Allergy Verified 06/20/19 09:33 PMH/Surg Hx/FS Hx/Imm Hx - Additional Past Medical History Additional PMH: ADHD - Surgical History Surgical History: Yes Surgery Procedure, Year, and Place: C-Sections, 2001 2006 2009, [facility]. Cholecystectomy, 2011, [facility],. thigh debridement - infection. tubal ligation - Family History Known Family History: Positive: None Negative: Cardiac Disease, Hypertension, Diabetes, Respiratory Disease Family History: no known family history of cardio pulmonary disease or clotting disorders - Social History Lives: With Family Alcohol Use: None Substance Use Type: Marijuana Substance Use Comment - Amount & Last Used: amphetamines - none for 6 months or more 08/31 Smoking Status (MU): Light Every Day Tobacco Smoker Type: Cigarettes Amount Used/How Often: less than a ppd Have You Smoked in the Last Year: Yes Household Exposure Type: Cigarettes - Immunization History Most Recent Influenza Vaccination: Never Most Recent Tetanus Shot: 4yrs ago Most Recent Pneumonia Vaccination: never Review of Systems All Other Systems Reviewed And Are Negative: No Constitutional: Positive: Negative Skin: Positive: Other - Right upper back mass Respiratory: Positive: Negative Cardiovascular: Positive: Negative Neurovascular: Positive: Negative Neurological: Positive: Negative Psychological: Positive: Negative Physical Exam - Summary Physical Exam Summary: GENERAL: Moderate pain distress SKIN: RIGHT UPPER BACK: large approx 10.0cm diameter erythematous, warm, and very tender fluctuant area with streaking erythema to posterior neck and mid upper back. NECK: FROM, but severe pain with neck flexion and left lateral flexion. CHEST: No accessory muscle use. Breathing comfortably and in no distress. CV: Pulses intact. Cap refill <2seconds NEURO: Alert. PSYCH: Age appropriate behavior. Triage Information Reviewed: Yes Vital Signs: Initial Vital Signs Temp 0 F 06/20/19 09:30 Pulse 90 06/20/19 09:30 Resp 18 06/20/19 09:30 BP 119/76 06/20/19 09:30 Pulse Ox 97 06/20/19 09:30 Vital Signs (72 hours) 06/20/19 06/20/19 09:30 10:17 Temperature 0 F 98.5 F Pulse Rate 90 Respiratory 18 Rate Blood Pressure 119/76 (mmHg) O2 Sat by Pulse 97 Oximetry Vital Signs Reviewed: Yes Course/Dx - Course Course Of Treatment: Large likely abscess to right upper back with severe pain on palpation. Given hx of MRSA and IVDA - recommend going to ED for likely imaging of the area and possible drainage or IV antibiotics. Pt agreeable to the plan and friend with her will drive her. - Diagnoses Provider Diagnosis: Abscess of back Discharge ED - Sign-Out/Discharge Documenting (check all that apply): Patient Departure All imaging exams completed and their final reports reviewed: No Studies - Discharge Plan Condition: Stable Disposition: HOME-RECOMMEND TO ED Referrals: Sharifa Burrows MD [Primary Care Provider] - Additional Instructions: Please go to the ER for further evaluation of your neck/shoulder mass - Billing Disposition and Condition Condition: STABLE Disposition: Home-Recommend to ED
== END 2019-06-20 10:18 | disposition home health service (06) ==
LOC: UCEAST 09:24
DX: L02.212 Cutaneous abscess of back [any part, except buttock and flank] (principal); F90.9 Attention-deficit hyperactivity disorder, unspecified type; F17.210 Nicotine dependence, cigarettes, uncomplicated
CPT/HCPCS: 99211; G0463